=== PATIENT | female | born 1940 | race Caucasian/White ===

== ENCOUNTER 2020-08-04 15:09 | Inpatient (IN) ==
[2020-08-05] MEDS: Acetaminophen 325 MG TABLET PO PRN ×2 (16:26→21:37)
[2020-08-05] MEDS: Apixaban 5 MG TABLET PO SCH (21:38)
[2020-08-05] MEDS: QUEtiapine Fumarate 25 MG TABLET PO SCH (21:38)
[2020-08-05] MEDS: Acyclovir 200 MG CAPSULE PO SCH (21:39)
[2020-08-05] MEDS: metroNIDAZOLE 500 MG TABLET PO SCH (21:41)
[2020-08-05] MEDS: Mirtazapine 15 MG TABLET PO SCH (21:41)
[2020-08-05] MEDS: Gabapentin 300 MG CAPSULE PO SCH (21:41)
[2020-08-05] MEDS: clonazePAM 0.5 MG TABLET PO PRN (21:53)
[2020-08-06] MEDS: Acetaminophen 325 MG TABLET PO PRN ×3 (04:04→23:02)
[2020-08-06 05:20] LABS: Basophils % 0.1 %; Eosinophils # 0.2 K/mcL (0.0-0.6); Eosinophils % 1.8 %; Hematocrit 22.7 % (35.3-44.9); Hemoglobin 7.6 g/dL (11.5-15.4); Immature Granulocytes % 0.7 % (0-4); Lymphocytes # 1.3 K/mcL (0.6-4.6); Lymphocytes % 14.4 %; Mean Corpuscular HGB Conc 33.5 g/dL (31.6-35.5); Mean Corpuscular Hemoglobin 36.7 pg (28.0-33.3); Mean Corpuscular Volume 109.7 fL (83.0-100.0); Mean Platelet Volume 9.6 fL (9.4-12.4); Monocytes # 1.6 K/mcL (0.0-1.3); Monocytes % 18.1 %; Neutrophils # 5.7 K/mcL (1.6-8.9); Platelet Count 195 K/mcL (140-400); Red Blood Count 2.07 M/mcL (3.82-4.97); Red Cell Distribution Width 13.2 % (11.5-14.5); Segmented Neutrophils % 64.9 %; White Blood Count 8.8 K/mcL (4.3-11.1)
[2020-08-06 05:30] LABS: Macrocytosis Present (Not Present); Platelet Estimate Normal (Normal)
[2020-08-06 05:35] LABS: Albumin 3.2 g/dL (3.5-5.7); Albumin/Globulin Ratio 1.9 (1.1-2.2); Bilirubin,Total 0.4 mg/dL (0.3-1.0); Globulin 1.7 g/dL (2.4-3.5); Magnesium 1.5 mg/dL (1.6-2.6); Total Protein 4.9 g/dL (6.4-8.9)
[2020-08-06] MEDS: Acyclovir 200 MG CAPSULE PO SCH ×2 (08:12→20:29)
[2020-08-06] MEDS: Cefdinir 300 MG CAPSULE PO SCH (08:12)
[2020-08-06] MEDS: metroNIDAZOLE 500 MG TABLET PO SCH ×3 (08:12→20:28)
[2020-08-06] MEDS: Gabapentin 300 MG CAPSULE PO SCH ×3 (08:12→20:30)
[2020-08-06] MEDS: POMALIDOMIDE 4 MG PO SCH (08:12)
[2020-08-06] MEDS: Apixaban 5 MG TABLET PO SCH ×2 (08:13→20:31)
[2020-08-06] MEDS: Magnesium Oxide 400 MG TABLET PO SCH ×2 (09:47→20:30)
[2020-08-06] MEDS: Furosemide 20 MG TABLET PO SCH (14:16)
[2020-08-06] MEDS: clonazePAM 0.5 MG TABLET PO PRN (17:53)
[2020-08-06] MEDS: QUEtiapine Fumarate 25 MG TABLET PO SCH (20:29)
[2020-08-06] MEDS: Mirtazapine 15 MG TABLET PO SCH (20:31)
[2020-08-07] MEDS: clonazePAM 0.5 MG TABLET PO PRN ×2 (05:42→20:07)
[2020-08-07] MEDS: Acetaminophen 325 MG TABLET PO PRN (05:43)
[2020-08-07 06:58] LABS: Hematocrit 23.6 % (35.3-44.9); Hemoglobin 7.7 g/dL (11.5-15.4); Mean Corpuscular HGB Conc 32.6 g/dL (31.6-35.5); Mean Corpuscular Hemoglobin 36.7 pg (28.0-33.3); Mean Corpuscular Volume 112.4 fL (83.0-100.0); Mean Platelet Volume 9.9 fL (9.4-12.4); Platelet Count 216 K/mcL (140-400); Red Cell Distribution Width 13.9 % (11.5-14.5); White Blood Count 6.5 K/mcL (4.3-11.1)
[2020-08-07 07:27] LABS: Calcium 9.1 mg/dL (8.6-10.3); Magnesium 1.8 mg/dL (1.6-2.6); Potassium 3.3 mEq/L (3.5-5.1)
[2020-08-07] MEDS: POMALIDOMIDE 4 MG PO SCH (08:39)
[2020-08-07] MEDS: Apixaban 5 MG TABLET PO SCH ×2 (08:39→20:08)
[2020-08-07] MEDS: metroNIDAZOLE 500 MG TABLET PO SCH ×3 (08:39→20:08)
[2020-08-07] MEDS: Magnesium Oxide 400 MG TABLET PO SCH ×2 (08:39→20:08)
[2020-08-07] MEDS: Cefdinir 300 MG CAPSULE PO SCH (08:39)
[2020-08-07] MEDS: Acyclovir 200 MG CAPSULE PO SCH ×2 (08:40→20:07)
[2020-08-07] MEDS: Furosemide 20 MG TABLET PO SCH (08:40)
[2020-08-07] MEDS: Gabapentin 300 MG CAPSULE PO SCH ×3 (08:40→20:07)
[2020-08-07] MEDS: QUEtiapine Fumarate 25 MG TABLET PO SCH (20:07)
[2020-08-07] MEDS: Mirtazapine 15 MG TABLET PO SCH (20:07)
[2020-08-08] MEDS: Acetaminophen 325 MG TABLET PO PRN ×2 (01:01→17:07)
[2020-08-08] MEDS: Gabapentin 300 MG CAPSULE PO SCH ×3 (08:16→19:50)
[2020-08-08] MEDS: metroNIDAZOLE 500 MG TABLET PO SCH ×3 (08:16→19:52)
[2020-08-08] MEDS: Magnesium Oxide 400 MG TABLET PO SCH ×2 (08:16→19:50)
[2020-08-08] MEDS: Apixaban 5 MG TABLET PO SCH ×2 (08:17→19:52)
[2020-08-08] MEDS: Acyclovir 200 MG CAPSULE PO SCH ×2 (08:17→19:51)
[2020-08-08] MEDS: Cefdinir 300 MG CAPSULE PO SCH (08:17)
[2020-08-08] MEDS: Furosemide 20 MG TABLET PO SCH (08:17)
[2020-08-08] MEDS: POMALIDOMIDE 4 MG PO SCH (08:19)
[2020-08-08] MEDS: Diphenoxylate/Atropine 1 TAB TABLET PO PRN (11:43)
[2020-08-08] MEDS: clonazePAM 0.5 MG TABLET PO PRN (17:07)
[2020-08-08] MEDS: QUEtiapine Fumarate 25 MG TABLET PO SCH (19:50)
[2020-08-08] MEDS: Mirtazapine 15 MG TABLET PO SCH (21:53)
[2020-08-09 05:05] LABS: Hematocrit 24.8 % (35.3-44.9); Hemoglobin 7.9 g/dL (11.5-15.4); Mean Corpuscular HGB Conc 31.9 g/dL (31.6-35.5); Mean Corpuscular Hemoglobin 36.6 pg (28.0-33.3); Mean Corpuscular Volume 114.8 fL (83.0-100.0); Mean Platelet Volume 9.8 fL (9.4-12.4); Platelet Count 298 K/mcL (140-400); Red Blood Count 2.16 M/mcL (3.82-4.97); Red Cell Distribution Width 14.6 % (11.5-14.5); White Blood Count 5.3 K/mcL (4.3-11.1)
[2020-08-09 05:22] LABS: Albumin 3.3 g/dL (3.5-5.7); Albumin/Globulin Ratio 1.5 (1.1-2.2); Bilirubin,Total 0.3 mg/dL (0.3-1.0); Globulin 2.2 g/dL (2.4-3.5); Total Protein 5.5 g/dL (6.4-8.9)
[2020-08-09] MEDS: Acyclovir 200 MG CAPSULE PO SCH ×2 (08:03→19:54)
[2020-08-09] MEDS: Apixaban 5 MG TABLET PO SCH ×2 (08:03→19:55)
[2020-08-09] MEDS: Magnesium Oxide 400 MG TABLET PO SCH ×2 (08:03→19:58)
[2020-08-09] MEDS: metroNIDAZOLE 500 MG TABLET PO SCH ×3 (08:03→19:55)
[2020-08-09] MEDS: Cefdinir 300 MG CAPSULE PO SCH (08:03)
[2020-08-09] MEDS: POMALIDOMIDE 4 MG PO SCH (08:04)
[2020-08-09] MEDS: Lactobacillus 1 EACH CAP.SPRINK PO SCH (08:04)
[2020-08-09] MEDS: Gabapentin 300 MG CAPSULE PO SCH ×3 (08:04→19:55)
[2020-08-09] MEDS: Furosemide 20 MG TABLET PO SCH (08:04)
[2020-08-09] MEDS: Acetaminophen 325 MG TABLET PO PRN ×2 (10:29→19:55)
[2020-08-09] MEDS: clonazePAM 0.5 MG TABLET PO PRN (14:54)
[2020-08-09] MEDS: Mirtazapine 15 MG TABLET PO SCH (19:56)
[2020-08-09] MEDS: QUEtiapine Fumarate 25 MG TABLET PO SCH (19:57)
[2020-08-10] MEDS: Lactobacillus 1 EACH CAP.SPRINK PO SCH (07:33)
[2020-08-10] MEDS: Furosemide 20 MG TABLET PO SCH (07:34)
[2020-08-10] MEDS: Cefdinir 300 MG CAPSULE PO SCH (07:34)
[2020-08-10] MEDS: Gabapentin 300 MG CAPSULE PO SCH ×3 (07:34→20:54)
[2020-08-10] MEDS: metroNIDAZOLE 500 MG TABLET PO SCH ×3 (07:35→20:54)
[2020-08-10] MEDS: Apixaban 5 MG TABLET PO SCH ×2 (07:35→20:51)
[2020-08-10] MEDS: Acyclovir 200 MG CAPSULE PO SCH ×2 (07:36→20:55)
[2020-08-10] MEDS: Magnesium Oxide 400 MG TABLET PO SCH ×2 (07:36→21:01)
[2020-08-10] MEDS: POMALIDOMIDE 4 MG PO SCH (07:37)
[2020-08-10] MEDS: clonazePAM 0.5 MG TABLET PO PRN (14:55)
[2020-08-10] MEDS: Acetaminophen 325 MG TABLET PO PRN (20:50)
[2020-08-10] MEDS: Mirtazapine 15 MG TABLET PO SCH (20:53)
[2020-08-10] MEDS: QUEtiapine Fumarate 25 MG TABLET PO SCH (20:55)
[2020-08-11] MEDS: Acetaminophen 325 MG TABLET PO PRN (06:09)
[2020-08-11] MEDS: clonazePAM 0.5 MG TABLET PO PRN ×2 (06:09→18:30)
[2020-08-11] MEDS: Gabapentin 300 MG CAPSULE PO SCH ×3 (09:27→20:05)
[2020-08-11] MEDS: metroNIDAZOLE 500 MG TABLET PO SCH ×3 (09:27→20:06)
[2020-08-11] MEDS: Apixaban 5 MG TABLET PO SCH ×2 (09:27→20:07)
[2020-08-11] MEDS: Furosemide 20 MG TABLET PO SCH (09:27)
[2020-08-11] MEDS: Magnesium Oxide 400 MG TABLET PO SCH ×2 (09:27→20:06)
[2020-08-11] MEDS: Acyclovir 200 MG CAPSULE PO SCH ×2 (09:28→20:06)
[2020-08-11] MEDS: Lactobacillus 1 EACH CAP.SPRINK PO SCH (09:28)
[2020-08-11] MEDS: POMALIDOMIDE 4 MG PO SCH (09:28)
[2020-08-11] MEDS: Diphenoxylate/Atropine 1 TAB TABLET PO PRN ×2 (11:03→17:11)
[2020-08-11] MEDS: QUEtiapine Fumarate 25 MG TABLET PO SCH (20:05)
[2020-08-11] MEDS: Mirtazapine 15 MG TABLET PO SCH (20:05)
[2020-08-12] MEDS: Gabapentin 300 MG CAPSULE PO SCH (07:58)
[2020-08-12] MEDS: Acyclovir 200 MG CAPSULE PO SCH (07:58)
[2020-08-12] MEDS: Furosemide 20 MG TABLET PO SCH (07:58)
[2020-08-12] MEDS: Magnesium Oxide 400 MG TABLET PO SCH (07:58)
[2020-08-12] MEDS: Apixaban 5 MG TABLET PO SCH (07:59)
[2020-08-12] MEDS: Lactobacillus 1 EACH CAP.SPRINK PO SCH (07:59)
[2020-08-12] MEDS: POMALIDOMIDE 4 MG PO SCH (07:59)
[2020-08-12] MEDS: metroNIDAZOLE 500 MG TABLET PO SCH (07:59)
[2020-08-12 08:30] VITALS: BP 115/57
== END 2020-08-12 12:04 | disposition home or self-care (01) | DRG 194 ==
LOC: INPGRE 08-05 15:00
PROVIDERS: ADMIT Family Medicine; ATTEND Family Medicine

== ENCOUNTER 2020-08-24 10:29 | Inpatient (IN) ==
[2020-08-24] MEDS ORDERED: Diphenoxylate/Atropine 1 TAB TABLET PO PRN (15:49)
[2020-08-24] MEDS: carvediloL 6.25 MG TABLET PO SCH (18:50)
[2020-08-24] MEDS: clonazePAM 0.5 MG TABLET PO PRN (21:07)
[2020-08-24] MEDS: QUEtiapine Fumarate 25 MG TABLET PO SCH (21:07)
[2020-08-24] MEDS: Mirtazapine 15 MG TABLET PO SCH (21:07)
[2020-08-24] MEDS: Gabapentin 300 MG CAPSULE PO SCH (21:07)
[2020-08-24] MEDS: Magnesium Oxide 400 MG TABLET PO SCH (21:08)
[2020-08-24] MEDS: Doxycycline 100 MG CAPSULE PO SCH (21:08)
[2020-08-24] MEDS: Acyclovir 200 MG CAPSULE PO SCH (21:08)
[2020-08-24] MEDS: FLUVOXAMINE MALEATE 150 MG PO SCH (21:08)
[2020-08-24] MEDS: Cefdinir 300 MG CAPSULE PO SCH (21:08)
[2020-08-24] MEDS: Apixaban 5 MG TABLET PO SCH (21:08)
[2020-08-25 05:00] LABS: Basophils # 0.1 K/mcL (0.0-0.2); Basophils % 1.6 %; Eosinophils # 0.4 K/mcL (0.0-0.6); Eosinophils % 4.3 %; Hematocrit 29.4 % (35.3-44.9); Hemoglobin 9.5 g/dL (11.5-15.4); Immature Granulocytes % 0.6 % (0-4); Lymphocytes # 1.9 K/mcL (0.6-4.6); Lymphocytes % 23.3 %; Mean Corpuscular HGB Conc 32.3 g/dL (31.6-35.5); Mean Corpuscular Hemoglobin 36.5 pg (28.0-33.3); Mean Corpuscular Volume 113.1 fL (83.0-100.0); Mean Platelet Volume 10.3 fL (9.4-12.4); Monocytes # 1.2 K/mcL (0.0-1.3); Monocytes % 14.7 %; Neutrophils # 4.5 K/mcL (1.6-8.9); Platelet Count 360 K/mcL (140-400); Red Cell Distribution Width 14.3 % (11.5-14.5); Segmented Neutrophils % 55.5 %; White Blood Count 8.2 K/mcL (4.3-11.1)
[2020-08-25 05:07] LABS: Anisocytosis 1+ (Not Present); Macrocytosis Present (Not Present); Platelet Estimate Normal (Normal)
[2020-08-25 05:18] LABS: Albumin 3.7 g/dL (3.5-5.7); Albumin/Globulin Ratio 1.8 (1.1-2.2); Bilirubin,Total 0.3 mg/dL (0.3-1.0); Calcium 9.9 mg/dL (8.6-10.3); Globulin 2.1 g/dL (2.4-3.5); Magnesium 2.2 mg/dL (1.6-2.6); Potassium 4.2 mEq/L (3.5-5.1); Total Protein 5.8 g/dL (6.4-8.9)
[2020-08-25] MEDS: Apixaban 5 MG TABLET PO SCH ×2 (08:47→20:54)
[2020-08-25] MEDS: Cefdinir 300 MG CAPSULE PO SCH ×2 (08:47→20:53)
[2020-08-25] MEDS: Lactobacillus 1 EACH CAP.SPRINK PO SCH (08:48)
[2020-08-25] MEDS: Gabapentin 300 MG CAPSULE PO SCH ×3 (08:48→20:53)
[2020-08-25] MEDS: Acyclovir 200 MG CAPSULE PO SCH ×2 (08:48→20:54)
[2020-08-25] MEDS: Magnesium Oxide 400 MG TABLET PO SCH ×2 (08:48→20:54)
[2020-08-25] MEDS: Doxycycline 100 MG CAPSULE PO SCH ×2 (08:48→20:54)
[2020-08-25] MEDS: QUEtiapine Fumarate 25 MG TABLET PO SCH ×2 (08:49→20:54)
[2020-08-25] MEDS: carvediloL 6.25 MG TABLET PO SCH ×2 (08:49→17:31)
[2020-08-25] MEDS: clonazePAM 0.5 MG TABLET PO PRN (20:53)
[2020-08-25] MEDS: Mirtazapine 15 MG TABLET PO SCH (20:53)
[2020-08-25] MEDS: Acetaminophen 325 MG TABLET PO PRN (20:53)
[2020-08-25] MEDS: FLUVOXAMINE MALEATE 150 MG PO SCH (20:54)
[2020-08-26] MEDS: Cefdinir 300 MG CAPSULE PO SCH ×2 (08:29→20:57)
[2020-08-26] MEDS: Acyclovir 200 MG CAPSULE PO SCH ×2 (08:29→20:57)
[2020-08-26] MEDS: Gabapentin 300 MG CAPSULE PO SCH ×3 (08:30→20:57)
[2020-08-26] MEDS: carvediloL 6.25 MG TABLET PO SCH ×2 (08:30→16:59)
[2020-08-26] MEDS: Magnesium Oxide 400 MG TABLET PO SCH ×2 (08:31→20:57)
[2020-08-26] MEDS: Doxycycline 100 MG CAPSULE PO SCH ×2 (08:31→20:57)
[2020-08-26] MEDS: Apixaban 5 MG TABLET PO SCH ×2 (08:31→20:57)
[2020-08-26] MEDS: Lactobacillus 1 EACH CAP.SPRINK PO SCH (08:31)
[2020-08-26] MEDS: Acetaminophen 325 MG TABLET PO PRN (16:59)
[2020-08-26] MEDS: clonazePAM 0.5 MG TABLET PO PRN (17:51)
[2020-08-26] MEDS: FLUVOXAMINE MALEATE 150 MG PO SCH (20:56)
[2020-08-26] MEDS: QUEtiapine Fumarate 25 MG TABLET PO SCH (20:57)
[2020-08-26] MEDS: Mirtazapine 15 MG TABLET PO SCH (20:57)
[2020-08-27] MEDS: carvediloL 6.25 MG TABLET PO SCH ×2 (08:26→16:00)
[2020-08-27] MEDS: Cefdinir 300 MG CAPSULE PO SCH ×2 (08:26→20:34)
[2020-08-27] MEDS: Gabapentin 300 MG CAPSULE PO SCH ×3 (08:26→20:34)
[2020-08-27] MEDS: Doxycycline 100 MG CAPSULE PO SCH ×2 (08:26→20:34)
[2020-08-27] MEDS: Apixaban 5 MG TABLET PO SCH ×2 (08:26→20:34)
[2020-08-27] MEDS: Acyclovir 200 MG CAPSULE PO SCH ×2 (08:26→20:34)
[2020-08-27] MEDS: Lactobacillus 1 EACH CAP.SPRINK PO SCH (08:26)
[2020-08-27] MEDS: Magnesium Oxide 400 MG TABLET PO SCH ×2 (08:26→20:34)
[2020-08-27] MEDS: clonazePAM 0.5 MG TABLET PO PRN (13:35)
[2020-08-27] MEDS: FLUVOXAMINE MALEATE 150 MG PO SCH (20:03)
[2020-08-27] MEDS: Mirtazapine 15 MG TABLET PO SCH (20:34)
[2020-08-27] MEDS: QUEtiapine Fumarate 25 MG TABLET PO SCH (20:34)
[2020-08-27] MEDS: Acetaminophen 325 MG TABLET PO PRN (20:39)
[2020-08-28 06:21] LABS: Hematocrit 30.8 % (35.3-44.9); Hemoglobin 9.9 g/dL (11.5-15.4); Mean Corpuscular HGB Conc 32.1 g/dL (31.6-35.5); Mean Corpuscular Hemoglobin 36.9 pg (28.0-33.3); Mean Corpuscular Volume 114.9 fL (83.0-100.0); Mean Platelet Volume 10.5 fL (9.4-12.4); Platelet Count 318 K/mcL (140-400); Red Blood Count 2.68 M/mcL (3.82-4.97); Red Cell Distribution Width 14.5 % (11.5-14.5); White Blood Count 6.3 K/mcL (4.3-11.1)
[2020-08-28 06:35] LABS: Albumin 3.8 g/dL (3.5-5.7); Bilirubin,Total 0.3 mg/dL (0.3-1.0); Calcium 9.8 mg/dL (8.6-10.3); Globulin 1.9 g/dL (2.4-3.5); Magnesium 2.1 mg/dL (1.6-2.6); Potassium 4.4 mEq/L (3.5-5.1); Total Protein 5.7 g/dL (6.4-8.9)
[2020-08-28] MEDS: carvediloL 6.25 MG TABLET PO SCH ×2 (09:05→16:53)
[2020-08-28] MEDS: Magnesium Oxide 400 MG TABLET PO SCH ×2 (09:05→19:48)
[2020-08-28] MEDS: Cefdinir 300 MG CAPSULE PO SCH ×2 (09:06→19:48)
[2020-08-28] MEDS: Doxycycline 100 MG CAPSULE PO SCH ×2 (09:06→19:48)
[2020-08-28] MEDS: Acyclovir 200 MG CAPSULE PO SCH ×2 (09:06→19:48)
[2020-08-28] MEDS: Lactobacillus 1 EACH CAP.SPRINK PO SCH (09:06)
[2020-08-28] MEDS: Gabapentin 300 MG CAPSULE PO SCH ×3 (09:07→19:48)
[2020-08-28] MEDS: Apixaban 5 MG TABLET PO SCH ×2 (09:07→19:48)
[2020-08-28] MEDS: clonazePAM 0.5 MG TABLET PO PRN ×2 (15:32→19:48)
[2020-08-28] MEDS: QUEtiapine Fumarate 25 MG TABLET PO SCH (19:48)
[2020-08-28] MEDS: Mirtazapine 15 MG TABLET PO SCH (19:48)
[2020-08-28] MEDS: FLUVOXAMINE MALEATE 150 MG PO SCH (19:50)
[2020-08-29] MEDS: Acyclovir 200 MG CAPSULE PO SCH ×2 (08:15→20:30)
[2020-08-29] MEDS: Gabapentin 300 MG CAPSULE PO SCH ×3 (08:15→20:31)
[2020-08-29] MEDS: Lactobacillus 1 EACH CAP.SPRINK PO SCH (08:16)
[2020-08-29] MEDS: carvediloL 6.25 MG TABLET PO SCH ×2 (08:16→16:22)
[2020-08-29] MEDS: Doxycycline 100 MG CAPSULE PO SCH ×2 (08:16→20:31)
[2020-08-29] MEDS: Magnesium Oxide 400 MG TABLET PO SCH ×2 (08:17→20:30)
[2020-08-29] MEDS: Apixaban 5 MG TABLET PO SCH ×2 (08:17→20:31)
[2020-08-29] MEDS: Cefdinir 300 MG CAPSULE PO SCH ×2 (08:17→20:31)
[2020-08-29] MEDS: clonazePAM 0.5 MG TABLET PO PRN (20:30)
[2020-08-29] MEDS: Mirtazapine 15 MG TABLET PO SCH (20:30)
[2020-08-29] MEDS: FLUVOXAMINE MALEATE 150 MG PO SCH (20:31)
[2020-08-29] MEDS: Acetaminophen 325 MG TABLET PO PRN (20:31)
[2020-08-29] MEDS: QUEtiapine Fumarate 25 MG TABLET PO SCH (20:31)
[2020-08-30] MEDS: Magnesium Oxide 400 MG TABLET PO SCH ×2 (09:55→20:43)
[2020-08-30] MEDS: Lactobacillus 1 EACH CAP.SPRINK PO SCH (09:55)
[2020-08-30] MEDS: Gabapentin 300 MG CAPSULE PO SCH ×3 (09:55→20:43)
[2020-08-30] MEDS: Apixaban 5 MG TABLET PO SCH ×2 (09:55→20:43)
[2020-08-30] MEDS: Acyclovir 200 MG CAPSULE PO SCH ×2 (09:55→20:42)
[2020-08-30] MEDS: carvediloL 6.25 MG TABLET PO SCH ×2 (09:55→16:20)
[2020-08-30] MEDS: Acetaminophen 325 MG TABLET PO PRN (12:14)
[2020-08-30] MEDS: clonazePAM 0.5 MG TABLET PO PRN ×2 (13:04→20:43)
[2020-08-30] MEDS: Mirtazapine 15 MG TABLET PO SCH (20:42)
[2020-08-30] MEDS: FLUVOXAMINE MALEATE 150 MG PO SCH (20:43)
[2020-08-30] MEDS: QUEtiapine Fumarate 25 MG TABLET PO SCH (20:43)
[2020-08-31 08:14] VITALS: BP 118/66
[2020-08-31] MEDS: Acyclovir 200 MG CAPSULE PO SCH (08:25)
[2020-08-31] MEDS: Lactobacillus 1 EACH CAP.SPRINK PO SCH (08:25)
[2020-08-31] MEDS: Gabapentin 300 MG CAPSULE PO SCH (08:25)
[2020-08-31] MEDS: carvediloL 6.25 MG TABLET PO SCH (08:25)
[2020-08-31] MEDS: Apixaban 5 MG TABLET PO SCH (08:26)
[2020-08-31] MEDS: Magnesium Oxide 400 MG TABLET PO SCH (08:26)
== END 2020-08-31 11:59 | disposition home health service (06) | DRG 945 ==
LOC: INPGRE 15:11
PROVIDERS: ADMIT Family Medicine; ATTEND Family Medicine